=== PATIENT | female | born 1950 | race Caucasian/White ===

== ENCOUNTER → 2016-10-14 | Outpatient (CLI) | payer OTHER ==
--- NOTE | 2016-10-14 15:55 | PCVCIMAG ---
APPROVED REPORT Study performed: 10/14/2016 14:10:40 EXAM: Comprehensive 2D, Doppler, and color-flow Echocardiogram Patient Location: Echo lab Status: routine Other Information Study Quality: Adequate Indications Dyspnea Chest Pain 2D Dimensions LVEF(%): 67.73 (>50%) IVSd: 8.35 (7-11mm) LVDd: 38.41 mm PWd: 8.74 (7-11mm) LVDs: 24.16 (25-40mm) Left Atrium: 27.34 (27-40mm) Aortic Root: 26.87 mm LV Single Plane 4CH: 64.07 % LV Single Plane 2CH: 65.12 %Woodward's LVEF: 64.60 % Biplane EF: 65.0 % Volumes Left Atrial Volume (Systole) Single Plane 4CH: 45.47 mLSingle Plane 2CH: 55.44 mL LA ESV Index: 28.00 mL/m2 Aortic Valve AoV Peak Sony.: 1.57 m/s AO Peak Gr.: 9.82 mmHgLVOT Max P.44 mmHg LVOT Max V: 1.27 m/s AI Vmax: 4.34 m/s AI [place]: 2.53 m/s2 AI PHT: 496.49 ms Mitral Valve E/A Ratio: 1.5 MV Decel. Time: 186.84 ms MV E Max Sony.: 0.77 m/s MV A Sony.: 0.50 m/s IVRT: 100.35 ms Pulmonary Valve PV Peak Sony.: 0.85 m/sPV Peak Gr.: 2.92 mmHg Pulmonary Vein P Vein S: 0.32 m/sP Vein A: 0.41 m/s P Vein D: 0.54 m/sP Vein A Dur.: 141.9 msec P Vein S/D Ratio: 0.59 Tricuspid Valve TR Peak Sony.: 2.46 m/s TR Peak Gr.: 24.26 mmHg Left Ventricle The left ventricle is normal size. There is normal LV segmental wall motion. There is normal left ventricular wall thickness. Left ventricular systolic function is normal. The left ventricular ejection fraction is within the normal range. LVEF is 60-65%. Right Ventricle The right ventricle is normal size. The right ventricular systolic function is normal. Atria The left atrium size is normal. The right atrium size is normal. Aortic Valve The aortic valve is normal in structure. Mild aortic regurgitation. There is no aortic valvular stenosis. Mitral Valve The mitral valve is normal in structure. There is no mitral valve regurgitation noted. No evidence of mitral valve stenosis. Tricuspid Valve The tricuspid valve is normal in structure. Trace tricuspid regurgitation with a PAP of 31 mmHg. Pulmonic Valve The pulmonary valve is normal in structure. There is no pulmonic valvular regurgitation. Great Vessels The aortic root is normal in size. IVC is normal in size and collapses with >50% inspiration Pericardium There is no pericardial effusion. <Conclusion> The left ventricle is normal size. There is normal left ventricular wall thickness. Left ventricular systolic function is normal. The right ventricle is normal size. The left atrium size is normal. The right atrium size is normal. Mild aortic regurgitation. The mitral valve is normal in structure. Trace tricuspid regurgitation with a PAP of 31 mmHg.
--- NOTE | 2016-10-14 15:58 | PCVCIMAG ---
APPROVED REPORT Exam: Stress Echocardiogram Indication: Chest pain , Dyspnea Patient Location: Echo lab Stress Nurse: Rachel Tripathi RN Status: routine HR: 74 bpm Rhythm: NSR Procedure The patient underwent an Exercise Stress Test using the Adriel Protocol. Blood pressure, heart rate, and EKG were monitored. An Echocardiogram was performed by aerial survey technician in four stages in quad fashion. At peak stress, four selected images were obtained and placed side by side with resting images for comparison. Stress Test Details Stress Test: Exercise stress testing was performed using a Adriel protocol. HR Resting HR: 74 bpmMax Heart Rate (APMHR): 155 bpm Max HR Achieved: 7 bpmTarget HR (85% APMHR): 131 bpm % of APMHR: 4 BP Resting BP: 120/62 mmHg Max BP: 210/70 mmHg Recovery BP: 148/60 mmHg ECG Resting ECG: Sinus Rhythm Stress ECG: Sinus Rhythm ST Change: Non-ischemic Arrhythmia: None Recovery ECG: Sinus Rhythm Recovery Arrhythmia: None Clinical Reason for Termination: Maximal effort Exercise duration: 12 min sec Highest Stage Achieved: Stage 4: 4.2 mph at 16% grade. Exercise capacity: 13.4 METs Overall Exercise Capacity for Age: Excellent Pre-Stress Echo The resting Echocardiogram showed normal left ventricular contractility with an estimated Ejection Fraction of about >55%. Normal wall motion in all segments on baseline images. Post-Stress Echo The stress Echocardiogram showed normal left ventricular contractility with an estimated Ejection Fraction of about 60-65%. Normal augmentation of wall motion in all segments on post stress images. Clinical No clinical or ECG evidence for ischemia. Conclusion Clinical Response: Non-ischemic Exercise Capacity: Superior Stress ECG Response: Non-ischemic Stress Echo Images: Non-ischemic Other Information Study Quality: Adequate
== END | disposition home or self-care (01) ==
LOC: PCVCIMAG 14:10
PROVIDERS: ATTEND Internal Medicine Cardiovascular Disease
DX: I08.2 Rheumatic disorders of both aortic and tricuspid valves (principal); R61 Generalized hyperhidrosis; M81.0 Age-related osteoporosis without current pathological fracture; M85.80 Other specified disorders of bone density and structure, unspecified site; Z79.82 Long term (current) use of aspirin; Z79.899 Other long term (current) drug therapy; Z85.850 Personal history of malignant neoplasm of thyroid; Z85.828 Personal history of other malignant neoplasm of skin
CPT/HCPCS: 36415; 93306; 93351; G0463